=== PATIENT | male | born 1990 | race Caucasian/White ===

== ENCOUNTER 2020-11-16 07:20 | Emergency (ER) | payer OTHER, SELFPAY ==
[~2020-11-16 07:20] MED LIST: FLOMAX0.4 MG PO; NORCO 5-325 TA1 EACH PO; ZOFRAN8 MG PO
[2020-11-16] MEDS ORDERED: NORCO 5-325 TA1 EACH PO (10:06)
== END 2020-11-16 10:45 | disposition home or self-care (01) ==
LOC: FER 07:20
DX: M51.36 Other intervertebral disc degeneration, lumbar region (principal); M51.26 Other intervertebral disc displacement, lumbar region; M54.6 Pain in thoracic spine; L30.9 Dermatitis, unspecified; J45.909 Unspecified asthma, uncomplicated; E66.9 Obesity, unspecified
CPT/HCPCS: 72128; 72131; J1885

== ENCOUNTER 2022-05-19 07:52 | Emergency (ER) | payer OTHER ==
[2022-05-19] MEDS ORDERED: PREDNISONE 20MG20 MG PO (08:09)
[2022-05-19] MEDS ORDERED: VIBRAMYCIN100 MG PO (08:09)
[2022-05-19 08:34] LABS: BASOPHIL 0.3 % (0-2); EOSINOPHIL 0.5 % (0-5); HGB 15.9 g/dl (13.2-18.0); LYMPHOCYTE 20.3 % (15-48); MCH 31.9 pg (25.0-31.0); MCHC 35.3 g/dL (32.0-36.0); MCV 90.4 fL (78.0-100.0); MONOCYTE 6.8 % (0-12); MPV 9.6 fL (6.0-9.5); NEUTROPHIL 71.8 % (41-80); NRBC 0; PLT 249 K/uL (150-400); RBC 4.98 M/uL (4.70-6.00); RDW 12.9 % (11.5-14.0)
[2022-05-19 08:55] LABS: CORONAVIRUS 2019 SARS-COV-2 NEGATIVE (NEGATIVE); INFLUENZA A NAA NEGATIVE (NEGATIVE)
[2022-05-19 09:06] LABS: ALBUMIN 3.9 g/dL (3.4-5.0); BILIRUBIN - TOTAL 0.5 mg/dL (0.2-1.0); BUN/CREAT RATIO (CALC) 13.7 RATIO; CREATININE 0.95 mg/dL (0.67-1.17); GLOBULIN (CALCULATION) 3.2 g/dL; POTASSIUM 4.3 mmol/L (3.5-5.1); TOTAL PROTEIN 7.1 g/dL (6.4-8.2)
[2022-05-19] MEDS ORDERED: MUCINEX DM ER1 EACH PO (09:24)
== END 2022-05-19 09:39 | disposition home or self-care (01) ==
LOC: FER 07:52
PROVIDERS: Internal Medicine
DX: J20.9 Acute bronchitis, unspecified (principal); J45.901 Unspecified asthma with (acute) exacerbation; B34.9 Viral infection, unspecified; Z20.822 Contact with and (suspected) exposure to COVID-19
CPT/HCPCS: 36415; 71045; 80053; 84145; 85025; J1100; U0002